=== PATIENT | female | born 1995 | race Caucasian/White ===

== ENCOUNTER 2017-02-14 11:28 | Emergency (ER) | payer OTHER ==
[~2017-02-14] VITALS: Ht 167.6 cm; Wt 52.0 kg
[2017-02-14 11:30] VITALS: BP 104/70
[2017-02-14 12:12] LABS: HEMATOCRIT 33.8 % (34.6-47.8); HEMOGLOBIN 11.4 g/dL (11.7-16.4); WHITE BLOOD COUNT 4.6 x10^3/uL (3.4-10)
[2017-02-14] MEDS ORDERED: PREN-3 PO (12:20)
[2017-02-14 12:22] LABS: BLOOD UREA NITROGEN 10 mg/dL (7-18)
== END 2017-02-14 14:07 | disposition home or self-care (01) ==
LOC: ED 13:30
DX: O20.0 Threatened abortion (principal); Z3A.01 Less than 8 weeks gestation of pregnancy
CPT/HCPCS: 36415; 76830; 80048; 81001; 82040; 84702; 85025; 86901; 87077; 87086; 87186